=== PATIENT | female | born 1940 | race Caucasian/White ===

== ENCOUNTER 2023-06-17 19:16 | Emergency (ER) | payer OTHER, SELFPAY ==
[2023-06-17 19:20] VITALS: BP 182/77
[2023-06-17 19:59] VITALS: BMI 44.3
[2023-06-17 20:00] VITALS: BP 156/65
[2023-06-17 20:14] LABS: % Basophils 0.9 % (0-2); % Immature Granulocytes 0.2 % (0-0.5); % Lymphocytes 25.9 % (20.5-51.1); % Monocytes 11.8 % (1.7-9.3); % Neutrophils 59.2 % (42.2-75.2); Absolute Eosinophils 0.1 10^3/uL (0-0.7); Absolute Lymphocytes 1.2 10^3/uL (1.2-3.4); Absolute Monocytes 0.5 10^3/uL (0.1-0.6); Absolute Neutrophils 2.7 10^3/uL (1.4-6.5); Hematocrit 34.7 % (37.0-47.0); Hemoglobin 12.2 g/dL (12.0-16.0); Mean Corp Hgb Conc. 35.2 g/dL (33.0-37.0); Mean Corpuscular Volume 93.8 fL (81.0-99.0); Mean Platelet Volume 9.5 fL (7.4-10.4); Nucleated Red Blood Cells % 0 %; Platelet Count 199 10^3/uL (130-400); Red Cell Dist. Width 13.2 % (11.5-14.5); White Blood Cell Count 4.6 10^3/uL (4.8-10.8)
[2023-06-17 20:26] LABS: Blood Urea Nitrogen 27 mg/dl (7-17); Calcium 9.2 mg/dl (8.4-10.2); Carbon Dioxide 27 mmol/L (22-30); Chloride 97 mmol/L (98-107); Estimated Creatinine Clearance 59 ml/min; Glucose 153 mg/dl (70-99); Potassium 4.7 mmol/L (3.5-5.1); Sodium 129 mmol/L (135-145); eGFR > 60.00
[2023-06-17] MEDS: NSS 500 IV (21:40)
[2023-06-17 21:47] VITALS: BP 148/71
[2023-06-17 22:00] VITALS: BP 118/99
[2023-06-17 23:00] VITALS: BP 146/70
--- NOTE | 2023-06-17 23:17 | ED.GENMED ---
History of Present Illness
General
Chief Complaint: Weakness
Source: patient
Exam Limitations: none
Time Seen by Provider: 06/17/23 20:20
Nursing documentation reviewed up to this point in time: agreed with
Travel History
Have you had any contact with someone who has COVID-19?: No
Do you have any symptoms of coronavirus? Fever > 100 degrees, chills, cough, shortness of breath, sore throat, loss of taste or smell, muscle aches, or headache?: No
History of Present Illness
History of Present Illness:
Patient presents to ED secondary to generalized weakness and fatigue over the past 2 weeks. In addition, when she checked her blood pressure at home, it was high. Denies fever or chills. Denies chest pain or shortness of breath. Denies coughing.
Denies nausea, vomiting, or diarrhea. Denies dizziness. Denies loss of sensation. Denies difficulty with speech. Denies blurred vision. Denies difficulty with ambulation. Of note, patient states that she has been only eating 2 meals and has
cut out eating any 'treats', and attempt to lose weight. Patient states that she feels as though she drinks enough water.
Past History
Past History
ED Past Medical History: Arrthythmia (Atrial fibrillation), HTN, Hypercholesterolemia, NIDDM, Hypothyroidism and Other (History of back pain, neck pain, diarrhea, diverticulitis, irritable bowel surgery, osteoarthritis)
ED Past Surgical History: Cholecystectomy, Tonsilectomy and Other (Surgery for a colonic abscess he, carpal tunnel surgery bilaterally cystocele repair, rectocele repair, umbilical hernia surgery, D&C, Achilles tendon and spur surgery)
Social History
Personal:
Living: with family
Employment: Retired
Review of Systems
Review of Systems
Allergies reviewed?: Yes
All Other Systems: ROS reviewed and negative except as documented in HPI and ROS
Constitutional: Reports fatigue
EENT: Reports no symptoms
Respiratory: Reports no symptoms; Denies trouble breathing
Cardiac: Reports no symptoms; Denies chest pain
ABD/GI: Reports no symptoms; Denies nausea, vomiting or diarrhea
: Denies no symptoms
Musculoskeletal: Reports no symptoms
Skin: Reports no symptoms
Neurological: Reports weakness
Phy Exam
Physical Exam
Physical Exam:
Physical Exam
General: no apparent distress, not acutely ill. afebrile
Head: nc/at. eomi
Neck: supple. no meningeal signs.
Heart: s1/s2 regular rate and rhythm, no murmur. equal radial pulses.
Lungs: no acute respiratory distress. clear bilaterally
Abdomen: normal bowel sounds. not tender.
Neuro: alert and oriented. no focal neurological deficits. normal speech.
Skin: no rash
Psychiatric: well kept. interactive and cooperative
Extremities: LE edema, nonpitting. no calf tenderness.
Course
Orders/Labs/Results
Orders:
Orders
06/17/23 19:23
Electrocardiogram (*1) Urgent
Reason for Study: Fatigue / Weakness
EKG- Treatment ONCE
06/17/23 20:07
Basic Metabolic Panel Urgent
Complete Blood Count/With Diff Urgent
TSH Reflex To Free T4 Urgent
Comment: ADD ON
06/17/23 21:10
Add On- LAB Urgent
Tests Added?: TSH to reflex free T4
0.9% Sodium Chloride 500 ml [Nss] 500 ml IV BOLUS
Abnormal Lab Results
06/17/23
20:07
WBC 4.6 L 10^3/uL
(4.8-10.8)
RBC 3.70 L 10^6/uL
(4.20-5.40)
Hct 34.7 L %
(37.0-47.0)
MCH 33.0 H pg
(27.0-31.0)
Monocytes % 11.8 H %
(1.7-9.3)
Sodium 129 L mmol/L
(135-145)
Chloride 97 L mmol/L
(98-107)
BUN 27 H mg/dl
(7-17)
Glucose 153 H mg/dl
(70-99)
06/17/23 20:07
06/17/23 20:07
Vital Signs
Initial and Last Documented VS:
Initial Vital Signs
Temp Pulse Resp BP Pulse Ox
97.8 F 64 18 182/77 99
06/17/23 19:20 06/17/23 19:20 06/17/23 19:20 06/17/23 19:20 06/17/23 19:20
Last Documented Vital Signs
Temp Pulse Resp BP Pulse Ox
97.8 F 61 20 146/70 93
06/17/23 19:20 06/17/23 23:45 06/17/23 23:45 06/17/23 23:00 06/17/23 23:45
MDM/Problems Addressed
MDM/Problems Addressed:
Hyponatremia as well as increased BUN to creatinine ratio noted, suggestive of possible mild malnutrition along with dehydration. Patient given IV fluid bolus in ED. Patient will be discharged home in stable condition, to the care of her spouse,
with recommendation to increase caloric intake also along with increased fluid intake. In addition, recommended PCP follow-up as an outpatient, including repeat blood work in 1 to 2 weeks.
*Critical Care Note
Total Time (30-74mins, 75-104mins- exclusive of procedures): Not Applicable
ED Attending Note
-
Portions of this chart may have been created with voice recognition software.� Occasional wrong word or��sound alike� substitutions may have occurred due to the inherent limitations of voice recognition software.
Discharge Plan
Departure
Patient Disposition: Home (Routine Discharge)
Date of Disposition: 06/17/23
Time of Disposition: 23:21
Patient with high blood pressure during this ER visit?: Yes
Discharge Problem:
Weakness
Instructions: Generalized Weakness (DC)
Prescriptions:
No Action
famotidine 20 MG tablet
20 mg PO QPM
lorazepam 0.5 MG tablet
0.5 - 1 mg PO HS
lisinopril 10 MG tablet
40 mg PO DAILY
rosuvastatin 5 MG tablet
5 mg PO Q48H
omeprazole 20 MG tablet,delayed release (DR/EC)
20 mg PO DAILY
cholecalciferol (vitamin D3) [Vitamin D3] 2,000 UNIT capsule
2,000 unit PO DAILY
methocarbamol 500 MG tablet
500 mg PO BIDPRN PRN (Reason: as directed)
acetaminophen [Tylenol Extra Strength] 500 MG tablet
1,000 mg PO HS PRN (Reason: PAIN)
acetaminophen [Tylenol Extra Strength] 500 MG tablet
1,000 mg PO DAILY PRN (Reason: PAIN)
levothyroxine 150 MCG tablet
125 mcg PO DAILY
calcium carbonate [Antacid (calcium carbonate)] 1 TABLET tablet,chewable
2 - 4 tab PO HS
docosahexaenoic acid-epa 1 CAP capsule
2 cap PO BID
coenzyme Q10 [Co Q-10] 200 MG capsule
200 mg PO DAILY
Xarelto 20 MG tablet
20 mg PO QPM
Patient Comments:
TAKES AT DINNER
L.acidoph, paracasei,B. lactis 1 EACH capsule
1 ea PO DAILY
magnesium oxide 400 MG tablet
400 mg PO BID
ondansetron HCl 4 MG tablet
4 mg PO PRN PRN (Reason: NAUSEA/VOMITTING)
tramadol 50 MG tablet
50 mg PO PRN PRN (Reason: PAIN)
Fiber
3 tab PO BID
Saline Nasal 50 SPRAYS/45 ML aerosol,spray
2 sprays intranasal QID 0RF
rabeprazole 20 mg Tablet,Delayed Release (Dr/Ec)
20 mg PO DAILY
glipizide 10 mg Tablet
10 mg PO BID
venlafaxine [Effexor] 37.5 mg Tablet
37.5 mg PO DAILY
ferrous sulfate [Iron (ferrous sulfate)] 325 mg (65 mg iron) Tablet
325 mg PO BID
pioglitazone 30 mg Tablet
30 mg PO DAILY
Willis 3 Fish Oil Capsule
1 cap PO DAILY
Referrals:
Pedro Barahona MD [Family Provider] -
Activity Restrictions/Additional Instructions:
As discussed, please follow-up with your primary care physician for reevaluation, including repeat blood work in 1 to 2 weeks. In the meantime, recommend keeping log of daily blood pressure, to be discussed with your primary care physician
Interventions
Interventions:
*Risk Screen - Suicide Last Done: 06/17/23 19:20
*General Assessment Last Done: 06/17/23 19:20
*Neglect/Abuse Screening Last Done: 06/17/23 19:20
ED- Fall Risk Assessment Last Done: 06/18/23 00:25
*ED COVID-19 Vaccine History Last Done: 06/17/23 19:59
*Nursing Disposition Last Done: 06/18/23 00:25
ED- Cardiac Assessment Last Done: 06/17/23 20:15
ED- Neurological Assessment Last Done: 06/17/23 20:15
ED- Pulmonary Assessment Last Done: 06/17/23 20:15
Discharge Date and Time
Discharge Date/Time: 06/18/23 00:25
[2023-06-17 23:29] LABS: TSH Reflex To Free T4 1.88 uIU/ml (0.47-4.68)
== END 2023-06-18 00:25 | disposition home or self-care (01) ==
LOC: EMR 19:16
PROVIDERS: EMERGENCY PHYSICIAN Emergency Medicine; FAMILY PHYSICIAN Internal Medicine
DX: R53.1 Weakness (principal); R53.83 Other fatigue; I48.91 Unspecified atrial fibrillation; I10 Essential (primary) hypertension; E78.00 Pure hypercholesterolemia, unspecified; E11.9 Type 2 diabetes mellitus without complications; E03.9 Hypothyroidism, unspecified; E87.1 Hypo-osmolality and hyponatremia; K58.9 Irritable bowel syndrome, unspecified; M19.90 Unspecified osteoarthritis, unspecified site; Z90.49 Acquired absence of other specified parts of digestive tract
CPT/HCPCS: 99283; 96360; 80048; 84443; 85025; 93005

== ENCOUNTER 2023-06-24 22:48 | Emergency (ER) | payer OTHER, SELFPAY ==
[2023-06-24 22:50] VITALS: BP 138/77
[2023-06-24 23:21] VITALS: BP 163/75
[2023-06-24 23:36] LABS: % Basophils 0.8 % (0-2); % Eosinophils 2.9 % (0-6); % Immature Granulocytes 0.2 % (0-0.5); % Lymphocytes 29.8 % (20.5-51.1); % Monocytes 8.4 % (1.7-9.3); % Neutrophils 57.9 % (42.2-75.2); Absolute Eosinophils 0.2 10^3/uL (0-0.7); Absolute Lymphocytes 1.5 10^3/uL (1.2-3.4); Absolute Monocytes 0.4 10^3/uL (0.1-0.6); Hematocrit 34.9 % (37.0-47.0); Hemoglobin 12.1 g/dL (12.0-16.0); Mean Corp Hgb Conc. 34.7 g/dL (33.0-37.0); Mean Corpuscular Hgb 32.5 pg (27.0-31.0); Mean Corpuscular Volume 93.8 fL (81.0-99.0); Mean Platelet Volume 9.4 fL (7.4-10.4); Nucleated Red Blood Cells % 0 %; Platelet Count 192 10^3/uL (130-400); Red Blood Cell Count 3.72 10^6/uL (4.20-5.40); Red Cell Dist. Width 13.6 % (11.5-14.5); White Blood Cell Count 5.1 10^3/uL (4.8-10.8)
[2023-06-24 23:56] LABS: ALT (SGPT) 18 U/L (0-35); AST (SGOT) 30 U/L (14-36); Albumin 4.2 g/dl (3.5-5.0); Alkaline Phosphatase 57 U/L (38-126); Blood Urea Nitrogen 25 mg/dl (7-17); Calcium 9.5 mg/dl (8.4-10.2); Carbon Dioxide 25 mmol/L (22-30); Chloride 102 mmol/L (98-107); Glucose 133 mg/dl (70-99); Lipase 142 U/L (23-300); Potassium 4.1 mmol/L (3.5-5.1); Sodium 134 mmol/L (135-145); Total Bilirubin 0.4 mg/dl (0.2-1.3); Total Protein 7.1 g/dl (6.3-8.2); eGFR > 60.00
[2023-06-25] VITALS: BP 159/54
[2023-06-25 00:13] LABS: Troponin I < 0.012 ng/ml
[2023-06-25 01:00] VITALS: BP 167/73
[2023-06-25 02:00] VITALS: BP 138/56
--- NOTE | 2023-06-25 02:32 | ED.GENMED ---
History of Present Illness
General
Chief Complaint: Blood Pressure Problem
Source: patient and spouse
Exam Limitations: none
Time Seen by Provider: 06/24/23 23:08
Travel History
Have you had any contact with someone who has COVID-19?: No
Do you have any symptoms of coronavirus? Fever > 100 degrees, chills, cough, shortness of breath, sore throat, loss of taste or smell, muscle aches, or headache?: No
History of Present Illness
History of Present Illness:
82-year-old female presents just not feeling well. She checked her blood pressure and noticed it to be elevated. Patient denies chest pain or shortness of breath. No palpitations. Does report that she had little bit discomfort in her epigastric
area and toward her back. No vomiting.
Past History
Past History
ED Past Medical History: Arrthythmia (Atrial fibrillation), HTN, Hypercholesterolemia, NIDDM, Hypothyroidism and Other (History of back pain, neck pain, diarrhea, diverticulitis, irritable bowel surgery, osteoarthritis)
ED Past Surgical History: Cholecystectomy, Tonsilectomy and Other (Surgery for a colonic abscess he, carpal tunnel surgery bilaterally cystocele repair, rectocele repair, umbilical hernia surgery, D&C, Achilles tendon and spur surgery)
Social History
Personal:
Living: with family
Employment: Retired
Phy Exam
Physical Exam
Physical Exam:
CONSTITUTIONAL Patient alert and oriented to person, place and time. Well-appearing. Vital signs reviewed.
HEAD atraumatic, normocephalic.
EYES eyelids normal to inspection, Pupils equally round and reactive to light, Extraocular muscles intact, Conjunctiva normal, Sclera normal.
NECK normal range of motion, Trachea midline, no jugular venous distention.
RESPIRATORY CHEST No respiratory distress noted, Chest expansion equal, Bilateral breath sounds clear.
CARDIOVASCULAR regular rate and rhythm, Heart sounds normal.
ABDOMEN abdomen nontender, Bowel sounds normal. No distention.
BACK normal inspection, no obvious deformities
UPPER EXTREMITY range of motion normal, Motor strength normal, no cyanosis, no edema.
LOWER EXTREMITY range of motion normal, Motor strength normal, no cyanosis, no edema.
NEURO Speech normal, No focal motor deficits, [place] coma scale 15, Memory normal, Cranial Nerves intact to screening exam.
SKIN skin warm, dry, and normal in color.
PSYCHIATRIC patient oriented to person place and time, Normal affect.
Course
Orders/Labs/Results
Orders:
Orders
06/24/23 23:28
Electrocardiogram (*1) Urgent
Reason for Study: Chest Pain
EKG- Treatment ONCE
06/24/23 23:29
Complete Blood Count/With Diff Urgent
Comprehensive Metabolic Panel Urgent
Lipase Urgent
Troponin I Urgent
06/25/23 00:03
CT Chest Pe Study Urgent
Comment:
Reason For Exam: cp, back pain, sob
Abnormal Lab Results
06/24/23
23:29
RBC 3.72 L 10^6/uL
(4.20-5.40)
Hct 34.9 L %
(37.0-47.0)
MCH 32.5 H pg
(27.0-31.0)
Sodium 134 L mmol/L
(135-145)
BUN 25 H mg/dl
(7-17)
Glucose 133 H mg/dl
(70-99)
06/24/23 23:29
06/24/23 23:29
Vital Signs
Initial and Last Documented VS:
Initial Vital Signs
Temp Pulse Resp BP Pulse Ox
97.8 F 70 24 138/77 96
06/24/23 22:50 06/24/23 22:50 06/24/23 22:50 06/24/23 22:50 06/24/23 22:50
Last Documented Vital Signs
Temp Pulse Resp BP Pulse Ox
97.8 F 62 19 138/56 90
06/24/23 22:50 06/25/23 02:15 06/25/23 02:15 06/25/23 02:00 06/25/23 02:15
MDM/Problems Addressed
MDM/Problems Addressed:
Hypertension
*Radiology
Radiology exam reviewed: radiology read reviewed
*Pulse Oximetry
Patient hypoxic: no
*EKG
Interpreted by ED Provider?: Yes
Interpretation: abnormal
Rate: bradycardiac
Rhythm: sinus
Ischemia: no ischemia
*Critical Care Note
Total Time (30-74mins, 75-104mins- exclusive of procedures): Not Applicable
Data Reviewed
Source: patient and spouse
Prescriptions/Medications Considered But Not Given:
Consider blood pressure management but blood pressure controlled over time without intervention
Patient Management
Escalation/DeEscalation of care consider admission/obs:
Appears well. CT negative. Labs unremarkable. Okay for discharge. Blood pressure much improved after observation
ED Attending Note
-
Portions of this chart may have been created with voice recognition software.� Occasional wrong word or��sound alike� substitutions may have occurred due to the inherent limitations of voice recognition software.
Discharge Plan
Departure
Patient Disposition: Home (Routine Discharge)
Date of Disposition: 06/25/23
Time of Disposition: 02:34
Patient with high blood pressure during this ER visit?: Yes
Discharge Problem:
Weakness
Instructions: High Blood Pressure (DC), BLOOD PRESSURE
Prescriptions:
No Action
famotidine 20 MG tablet
20 mg PO QPM
lorazepam 0.5 MG tablet
0.5 - 1 mg PO HS
lisinopril 10 MG tablet
40 mg PO DAILY
rosuvastatin 5 MG tablet
5 mg PO Q48H
omeprazole 20 MG tablet,delayed release (DR/EC)
20 mg PO DAILY
cholecalciferol (vitamin D3) [Vitamin D3] 2,000 UNIT capsule
2,000 unit PO DAILY
methocarbamol 500 MG tablet
500 mg PO BIDPRN PRN (Reason: as directed)
acetaminophen [Tylenol Extra Strength] 500 MG tablet
1,000 mg PO HS PRN (Reason: PAIN)
acetaminophen [Tylenol Extra Strength] 500 MG tablet
1,000 mg PO DAILY PRN (Reason: PAIN)
levothyroxine 150 MCG tablet
125 mcg PO DAILY
calcium carbonate [Antacid (calcium carbonate)] 1 TABLET tablet,chewable
2 - 4 tab PO HS
docosahexaenoic acid-epa 1 CAP capsule
2 cap PO BID
coenzyme Q10 [Co Q-10] 200 MG capsule
200 mg PO DAILY
Xarelto 20 MG tablet
20 mg PO QPM
Patient Comments:
TAKES AT DINNER
L.acidophrenettai,B. lactis 1 EACH capsule
1 ea PO DAILY
magnesium oxide 400 MG tablet
400 mg PO BID
ondansetron HCl 4 MG tablet
4 mg PO PRN PRN (Reason: NAUSEA/VOMITTING)
tramadol 50 MG tablet
50 mg PO PRN PRN (Reason: PAIN)
Fiber
3 tab PO BID
Saline Nasal 50 SPRAYS/45 ML aerosol,spray
2 sprays intranasal QID 0RF
rabeprazole 20 mg Tablet,Delayed Release (Dr/Ec)
20 mg PO DAILY
glipizide 10 mg Tablet
10 mg PO BID
venlafaxine [Effexor] 37.5 mg Tablet
37.5 mg PO DAILY
ferrous sulfate [Iron (ferrous sulfate)] 325 mg (65 mg iron) Tablet
325 mg PO BID
pioglitazone 30 mg Tablet
30 mg PO DAILY
[place] 3 Fish Oil Capsule
1 cap PO DAILY
Referrals:
Pedro Barahona MD [Family Provider] -
Activity Restrictions/Additional Instructions:
Please see your doctor next 3 to 5 days for follow-up and reevaluation. Return immediately for worsening symptoms, weakness of any kind, vomiting, chest pain or any other concerns.
Interventions
Interventions:
*Risk Screen - Suicide Last Done: 06/24/23 22:50
*General Assessment Last Done: 06/25/23 01:18
*Neglect/Abuse Screening Last Done: 06/24/23 22:50
ED- Fall Risk Assessment Last Done: 06/25/23 01:18
*ED COVID-19 Vaccine History Last Done: 06/25/23 01:18
ED- Cardiac Assessment Last Done: 06/24/23 23:39
ED- Neurological Assessment Last Done: 06/24/23 23:39
ED- Pulmonary Assessment Last Done: 06/24/23 23:39
== END 2023-06-25 02:50 | disposition home or self-care (01) ==
LOC: EMR 22:48
PROVIDERS: EMERGENCY PHYSICIAN Emergency Medicine; FAMILY PHYSICIAN Internal Medicine
DX: R53.1 Weakness (principal); I10 Essential (primary) hypertension
CPT/HCPCS: 99285; 71275; 80053; 83690; 84484; 85025; 93005; Q9967

== ENCOUNTER → 2024-01-08 12:44 | Outpatient (REF) | payer OTHER, SELFPAY | LOC: WOUND 12:44 | PROVIDERS: ATTENDING PHYSICIAN Surgery; FAMILY PHYSICIAN Internal Medicine | DX: S31.109A Unspecified open wound of abdominal wall, unspecified quadrant without penetration into peritoneal cavity, initial encounter (principal); I48.0 Paroxysmal atrial fibrillation; J98.4 Other disorders of lung; J32.9 Chronic sinusitis, unspecified; E66.3 Overweight; Z90.49 Acquired absence of other specified parts of digestive tract; X58.XXXA Exposure to other specified factors, initial encounter | CPT/HCPCS: 11042; 99204 ==

== ENCOUNTER → 2024-01-15 09:21 | Outpatient (REF) | payer OTHER, SELFPAY | LOC: WOUND 09:21 | PROVIDERS: ATTENDING PHYSICIAN Surgery; FAMILY PHYSICIAN Internal Medicine | DX: S31.109A Unspecified open wound of abdominal wall, unspecified quadrant without penetration into peritoneal cavity, initial encounter (principal); L90.5 Scar conditions and fibrosis of skin; Z90.49 Acquired absence of other specified parts of digestive tract; I48.0 Paroxysmal atrial fibrillation; J98.4 Other disorders of lung; J32.9 Chronic sinusitis, unspecified; E66.3 Overweight; X58.XXXA Exposure to other specified factors, initial encounter | CPT/HCPCS: 88305; 11104; 11105; 87070; 87147; 87176; 87186; 87205; 99213 ==

== ENCOUNTER → 2024-01-16 08:44 | Outpatient (REF) | payer OTHER, SELFPAY | LOC: RAD 08:44 | PROVIDERS: ATTENDING PHYSICIAN Surgery; FAMILY PHYSICIAN Internal Medicine | DX: S31.109A Unspecified open wound of abdominal wall, unspecified quadrant without penetration into peritoneal cavity, initial encounter (principal); L90.5 Scar conditions and fibrosis of skin | CPT/HCPCS: 76705 ==

== ENCOUNTER → 2024-01-22 13:26 | Outpatient (REF) | payer OTHER, SELFPAY | LOC: WOUND 13:26 | PROVIDERS: ATTENDING PHYSICIAN Surgery; FAMILY PHYSICIAN Internal Medicine | DX: S31.109A Unspecified open wound of abdominal wall, unspecified quadrant without penetration into peritoneal cavity, initial encounter (principal); L90.5 Scar conditions and fibrosis of skin; I48.0 Paroxysmal atrial fibrillation; J98.4 Other disorders of lung; J32.9 Chronic sinusitis, unspecified; E66.3 Overweight; X58.XXXA Exposure to other specified factors, initial encounter | CPT/HCPCS: 11042; 99213 ==

== ENCOUNTER → 2024-01-29 13:26 | Outpatient (REF) | payer OTHER, SELFPAY | LOC: WOUND 13:26 | PROVIDERS: ATTENDING PHYSICIAN Surgery | DX: S31.109A Unspecified open wound of abdominal wall, unspecified quadrant without penetration into peritoneal cavity, initial encounter (principal); L90.5 Scar conditions and fibrosis of skin; I48.0 Paroxysmal atrial fibrillation; J98.4 Other disorders of lung; J32.9 Chronic sinusitis, unspecified; E66.3 Overweight; Z90.49 Acquired absence of other specified parts of digestive tract; X58.XXXA Exposure to other specified factors, initial encounter | CPT/HCPCS: 11042 ==

== ENCOUNTER → 2024-02-08 13:55 | Outpatient (REF) | payer OTHER, SELFPAY | LOC: HWRAD 13:55 | PROVIDERS: ATTENDING PHYSICIAN Internal Medicine | DX: M81.0 Age-related osteoporosis without current pathological fracture (principal) | CPT/HCPCS: 77080 ==

== ENCOUNTER 2025-02-15 23:37 | Inpatient (IN) | payer OTHER, SELFPAY ==
[2025-02-15 18:31] VITALS: BP 170/77
[2025-02-15 18:33] VITALS: BP 170/77
[2025-02-15 18:37] VITALS: BMI 36.3
[2025-02-15 19:00] VITALS: BP 139/123
--- NOTE | 2025-02-15 19:12 | ED.MUSCINJ ---
HPI-Injury
<Tierra Scott NP - Last Filed: 02/15/25 22:32>
General
Chief Complaint: Fall
Source: patient
Exam Limitations: none
Time Seen by Provider: 02/15/25 18:37
Nursing documentation reviewed up to this point in time: agreed with
History of Present Illness-Injury
Is this injury a work related problem?: No
Is pt an associate of [facility]?: No
Initial Injury comments:
Patient to the emergency department after a fall at home. States she was trying to transfer from a chair onto her wheelchair but forgot to lock the brakes on the wheelchair. Wheelchair slid out and she fell onto the floor. She denies hitting her
head. There was no loss of consciousness. She complains of pain to her right hip. She is unable to move right lower extremity without severe pain, unable to bear weight. Injury occurred just prior to arrival. She is brought to the emergency
department by EMS for evaluation. Daughter is at bedside with her. On Xarelto
Past History
<Tierra Scott NP - Last Filed: 02/15/25 22:32>
Past History
ED Past Medical History: Arrthythmia (Atrial fibrillation), HTN, Hypercholesterolemia, NIDDM, Hypothyroidism and Other (History of back pain, neck pain, diarrhea, diverticulitis, irritable bowel surgery, osteoarthritis)
ED Past Surgical History: Cholecystectomy, Tonsilectomy and Other (Surgery for a colonic abscess he, carpal tunnel surgery bilaterally cystocele repair, rectocele repair, umbilical hernia surgery, D&C, Achilles tendon and spur surgery)
Social History
Personal:
Living: with family
Employment: Retired
Review of Systems
<Tierra Scott AD CLERK - Last Filed: 02/15/25 22:32>
Review of Systems
Constitutional: Reports no symptoms
EENT: Reports no symptoms
Respiratory: Reports no symptoms
Cardiac: Reports no symptoms
ABD/GI: Reports no symptoms
: Reports no symptoms
Musculoskeletal: Reports joint pain (Pain to right hip.)
Skin: Reports no symptoms
Neurological: Reports no symptoms
Psychiatric: Reports no symptoms
Musculoskeletal Injury Exam
<Tierra Scott AD CLERK - Last Filed: 02/15/25 22:32>
Musculoskeletal Injury Exam
Right Hip:
Pain with Movement?: Moderate
Tender to palpation?: Moderate
Soft tissue swelling?: Mild
External deformity and angulation?: None
Joint effusion?: None
Contusion?: Moderate
Hematoma-local bleeding into tissue?: None
Strain- Sprain- Tear (Connective tissue injury)?: Moderate
Crepitus with movement?: No
Joint instability?: No
Malalignment/deformity?: No
Range of motion: Limited
Distal skin color and temperature: normal-warm & good color
Capillary Refill: normal
Normal distal neurovascular exam?: Yes
Peripheral Pulses: posterior tibial (right): 3+ and dorsalis pedis (right): 3+
Phy Exam
<Tierra Scott, AD CLERK - Last Filed: 02/15/25 22:32>
General Physical Exam
General Presentation: moderate distress
General age: appears stated age
General Skin: warm and dry
General Habitus: normal
General Mental: alert
Cardiovascular Exam
Cardiovascular Exam: regular rate/rhythm and no edema
Pulmonary Exam
Pulmonary Exam: lungs clear and no respiratory distress
Gastrointestinal Exam
Gastrointestinal Exam: normal bowel sounds, non tender, soft, no pulsatile mass and non distended
Musculoskeletal Exam
Musculoskeletal Exam: neuro vasc intact
Skin Exam
Skin Exam: normal color, warm/dry and no rash
Psychiatric Exam
Psychiatric Exam: normal mood/affect
Injury Course
<Tierra Scott, AD CLERK - Last Filed: 02/15/25 22:32>
Orders/Labs/Results
Orders:
Orders
02/15/25 19:05
Hip, Right 2-3 Views [CR Hip - RT w/wo Pel 2-3 Vw*] Urgent
Comment:
Reason For Exam: fall
Include a pelvis x-ray?: Yes
02/15/25 19:06
HYDROmorphone [Dilaudid] 0.5 mg IV NOW STA
02/15/25 19:08
Ondansetron Injectable [Zofran] 4 mg IV NOW STA
02/15/25 19:21
Comprehensive Metabolic Panel Urgent
02/15/25 19:22
Type+Screen Urgent
Complete Blood Count/With Diff Urgent
02/15/25 20:22
CT Pelvis W/o Iv Contrast Urgent
Comment:
Reason For Exam: right hip pain. unable to bear weight.
02/15/25 20:34
HYDROmorphone [Dilaudid] 0.5 mg IV NOW STA
02/15/25 22:30
Electrocardiogram (*1) Urgent
Reason for Study: Fatigue / Weakness
EKG- Treatment ONCE
02/15/25 22:31
ORTHOPEDIC CONSULT Urgent
Consulting Provider: Amrik Frausto
Was physician already notified: Yes
Abnormal Lab Results
02/15/25 02/15/25
19:21 19:22
RBC 3.70 L 10^6/uL
(4.20-5.40)
Hgb 11.3 L g/dL
(12.0-16.0)
Hct 34.2 L %
(37.0-47.0)
RDW 15.0 H %
(11.5-14.5)
MPV 10.5 H fL
(7.4-10.4)
Abs Immat Gran (auto) 0.1 H 10^3/uL
(0-0.05)
Absolute Monos (auto) 0.7 H 10^3/uL
(0.1-0.6)
Immature Gran % 0.8 H %
(0-0.5)
Monocytes % 11.5 H %
(1.7-9.3)
Sodium 132 L mmol/L
(135-145)
BUN 37 H mg/dl
(7-17)
Glucose 139 H mg/dl
(70-99)
02/15/25 19:22
02/15/25 19:21
<Alex Romano, DO - Last Filed: 02/15/25 22:46>
Orders/Labs/Results
Orders:
Orders
02/15/25 19:05
Hip, Right 2-3 Views [CR Hip - RT w/wo Pel 2-3 Vw*] Urgent
Comment:
Reason For Exam: fall
Include a pelvis x-ray?: Yes
02/15/25 19:06
HYDROmorphone [Dilaudid] 0.5 mg IV NOW STA
02/15/25 19:08
Ondansetron Injectable [Zofran] 4 mg IV NOW STA
02/15/25 19:21
Comprehensive Metabolic Panel Urgent
02/15/25 19:22
Type+Screen Urgent
Complete Blood Count/With Diff Urgent
02/15/25 20:22
CT Pelvis W/o Iv Contrast Urgent
Comment:
Reason For Exam: right hip pain. unable to bear weight.
02/15/25 20:34
HYDROmorphone [Dilaudid] 0.5 mg IV NOW STA
02/15/25 22:30
Electrocardiogram (*1) Urgent
Reason for Study: Fatigue / Weakness
EKG- Treatment ONCE
02/15/25 22:31
ORTHOPEDIC CONSULT Urgent
Consulting Provider: Amrik Frausto
Was physician already notified: Yes
Abnormal Lab Results
02/15/25 02/15/25
19:21 19:22
RBC 3.70 L 10^6/uL
(4.20-5.40)
Hgb 11.3 L g/dL
(12.0-16.0)
Hct 34.2 L %
(37.0-47.0)
RDW 15.0 H %
(11.5-14.5)
MPV 10.5 H fL
(7.4-10.4)
Abs Immat Gran (auto) 0.1 H 10^3/uL
(0-0.05)
Absolute Monos (auto) 0.7 H 10^3/uL
(0.1-0.6)
Immature Gran % 0.8 H %
(0-0.5)
Monocytes % 11.5 H %
(1.7-9.3)
Sodium 132 L mmol/L
(135-145)
BUN 37 H mg/dl
(7-17)
Glucose 139 H mg/dl
(70-99)
02/15/25 19:22
02/15/25 19:21
<Tierra Scott NP - Last Filed: 02/15/25 22:32>
*Radiology
Radiology exam reviewed: radiology read reviewed
*Pulse Oximetry
SaO2: 98
Oxygen Mode of Delivery: Room air
Patient hypoxic: no
*Critical Care Note
Total Time (30-74mins, 75-104mins- exclusive of procedures): Not Applicable
<Tierra Scott NP - Last Filed: 02/15/25 22:32>
Update Note
Update Note:
Patient to the emergency department after a fall at home. She is nonambulatory, however she is able to stand and she transfers self independently into her wheelchair. Tonight she forgot to lock her wheelchair and she fell onto her right side. She
denies hitting her head. She was unable to get up. She was unable to move right lower extremity due to pain in her hip. Hip x-ray completed, no evidence of fracture noted. She was sent for noncontrast CT which confirms a right lateral superior
pubic ramus fracture, nondisplaced. Pain medications were provided however she is still is unable to stand and transfer due to pain. Will admit to the hospitalist service. Dr. Frausto notified of consult via [place] text.
ED Attending Note
<Tierra Scott AD CLERK - Last Filed: 02/15/25 22:32>
-
Portions of this chart may have been created with voice recognition software.� Occasional wrong word or��sound alike� substitutions may have occurred due to the inherent limitations of voice recognition software.
<Alex Romano, DO - Last Filed: 02/15/25 22:46>
ED Attending Note
Patient seen and examined by attending physician: Yes
ED Attending Note:
I have reviewed and agree with history treatment plan by Tierra cSott. My exam revealed 84-year-old female with right pelvic tenderness decreased range of motion right hip. No other traumatic findings. Admit to hospitalist due to right
superior pubic ramus fracture patient's inability to ambulate. Orthopedics notified.
Discharge Plan
Departure
Patient Disposition: Admit
Date of Disposition: 02/15/25
Time of Disposition: 22:27
Presentation/result/management discussed w/ accepting MD/DO: Hospitalist
Condition: Fair
Covid-19: Not Applicable
Discharge Problem:
Closed pelvic fracture
Prescriptions:
No Action
famotidine 20 MG tablet
20 mg PO QPM
lorazepam 0.5 MG tablet
0.5 - 1 mg PO HS
lisinopril 10 MG tablet
40 mg PO DAILY
rosuvastatin 5 MG tablet
5 mg PO Q48H
omeprazole 20 MG tablet,delayed release (DR/EC)
20 mg PO DAILY
cholecalciferol (vitamin D3) [Vitamin D3] 2,000 UNIT capsule
2,000 unit PO DAILY
methocarbamol 500 MG tablet
500 mg PO BIDPRN PRN (Reason: as directed)
acetaminophen [Tylenol Extra Strength] 500 MG tablet
1,000 mg PO HS PRN (Reason: PAIN)
acetaminophen [Tylenol Extra Strength] 500 MG tablet
1,000 mg PO DAILY PRN (Reason: PAIN)
levothyroxine 150 MCG tablet
125 mcg PO DAILY
calcium carbonate [Antacid (calcium carbonate)] 1 TABLET tablet,chewable
2 - 4 tab PO HS
docosahexaenoic acid-epa 1 CAP capsule
2 cap PO BID
coenzyme Q10 [Co Q-10] 200 MG capsule
200 mg PO DAILY
Xarelto 20 MG tablet
20 mg PO QPM
Patient Comments:
TAKES AT DINNER
L.acidoph,paracasei,B.animalis 1 EACH capsule
1 ea PO DAILY
magnesium oxide 400 MG tablet
400 mg PO BID
ondansetron HCl 4 MG tablet
4 mg PO PRN PRN (Reason: NAUSEA/VOMITTING)
tramadol 50 MG tablet
50 mg PO PRN PRN (Reason: PAIN)
Fiber
3 tab PO BID
Saline Nasal 50 SPRAYS/45 ML aerosol,spray
2 sprays intranasal QID 0RF
rabeprazole 20 mg Tablet,Delayed Release (Dr/Ec)
20 mg PO DAILY
glipizide 10 mg Tablet
10 mg PO BID
venlafaxine [Effexor] 37.5 mg Tablet
37.5 mg PO DAILY
ferrous sulfate [Iron (ferrous sulfate)] 325 mg (65 mg iron) Tablet
325 mg PO BID
pioglitazone 30 mg Tablet
30 mg PO DAILY
[place] 3 Fish Oil Capsule
1 cap PO DAILY
Referrals:
Pedro Barahona MD [Family Provider, Internal Medicine]
Interventions
Interventions:
*Risk Screen - Suicide Last Done: 02/15/25 18:33
*General Assessment Last Done: 02/15/25 18:33
*Neglect/Abuse Screening Last Done: 02/15/25 18:33
*ED- Fall Risk Assessment Last Done: 02/15/25 18:33
*ED COVID-19 Vaccine History Last Done: 02/15/25 18:33
*ED Influenza Vaccine History Last Done: 02/15/25 18:33
ED-Musculoskeletal Assessment Last Done: 02/15/25 18:37
ED- Neurological Assessment Last Done: 02/15/25 18:37
ED-Skin Assessment Last Done: 02/15/25 18:40
Discharge Date and Time
Print Language: ALGERIAN
[2025-02-15] MEDS: ZOFRAN 4 MG IV (19:13)
[2025-02-15] MEDS: DILAUDID 0.5 MG IV ×2 (19:13→20:44)
[2025-02-15 19:34] LABS: Hematocrit 34.2 % (37.0-47.0); Hemoglobin 11.3 g/dL (12.0-16.0); Mean Corp Hgb Conc. 33.0 g/dL (33.0-37.0); Mean Corpuscular Volume 92.4 fL (81.0-99.0); Nucleated Red Blood Cells % 0 %; Platelet Count 219 10^3/uL (130-400); Red Cell Dist. Width 15.0 % (11.5-14.5)
[2025-02-15 19:42] LABS: ALT (SGPT) 16 U/L (0-35); AST (SGOT) 25 U/L (14-36); Albumin 4.3 g/dl (3.5-5.0); Alkaline Phosphatase 49 U/L (38-126); Blood Urea Nitrogen 37 mg/dl (7-17); Calcium 9.6 mg/dl (8.4-10.2); Carbon Dioxide 29 mmol/L (22-30); Chloride 98 mmol/L (98-107); Estimated Creatinine Clearance 51 ml/min; Glucose 139 mg/dl (70-99); Potassium 5.0 mmol/L (3.5-5.1); Sodium 132 mmol/L (135-145); Total Protein 7.3 g/dl (6.3-8.2); eGFR > 60.00
[2025-02-15 21:06] VITALS: BP 141/59
[2025-02-15 22:00] VITALS: BP 115/51
--- NOTE | 2025-02-15 22:53 | HPS.HSE ---
Addendum entered and electronically signed by Messi Frank DO 02/15/25 23:44:
Patient seen and examined independently. Agree with findings and plan as set forth by ROSARIO Oneil.
Patient is an 84y F - chronically wheelchair-bound - who presents to ED complaining of R hip pain s/p fall at home. Patient states that she was transferring between chairs and neglected to set her break. She slipped, falling forward. She did
not strike her head. She denies any prodrome of lightheadedness, dizziness, chest pain, dyspnea, etc. Patient notes that she has been feeling well recently with no symptoms of fevers / chills, cough, dyspnea, N/V/D, etc. She does not have history
of frequent falling. Patient notes that she has been wheelchair dependent for about 5 years. She still manages to do housework and help care for her who also has health issues.
Ass:
Pelvic Fracture
Fall at Home
Chronic Ambulatory Dysfunction
Hypertension
Chronic Atrial Fibrillation
DM-II
Hypothyroidism
DDD / Chronic Pain Syndrome
GERD
Obesity
Plan:
Observe overnight for further evaluation and treatment.
Ortho consulted in the ED.
Pain control / supportive care. Weight-bearing as tolerated.
PT / OT evaluations to assist with transfers / mobility.
Hold sulfonylurea acutely. Follow glucose and cover with SSI if needed.
Continue other usual home medications including Xarelto, hydrocodone, etc.
Original Note:
Family Physician
-
Family Physician: Pedro Barahona
Chief Complaint
-
Mechanical fall with right hip pain and inability to stand
History of Present Illness
84-year-old female who was attempting to transfer from her wheelchair to walk up 2 steps while holding onto the wheelchair, but forgot to lock the brakes on the wheelchair. The wheelchair slid out from under her and she fell onto the floor. She
reports she uses a wheelchair for the last 5 years. She is complaining of right groin pain radiating down right leg. She has history of chronic back pain takes Vicodin 2.5 mg twice daily but is prescribed 5 mg twice daily she denies head injury,
LOC but is complaining of right hip pain with inability to bear weight. She was brought to the ER by EMS. She is on Xarelto for A-fib. X-ray showed a right superior pubic rami fracture. She denies headache, dizziness, fever, chills, neck pain,
chest pain, palpitations, cough, shortness breath, abdominal pain, nausea, vomiting, diarrhea, urinary symptoms.
She has past medical history of A-fib, HTN, HLD, DM2, hypothyroidism, chronic back pain, neck pain on opiates, IBS, diverticulitis, osteoarthritis, chronic ambulatory dysfunction has been using wheelchair x 5 years, class II obesity
Medical History
Past Medical History
Past Medical History: Reports Other
Additional Past Medical History:
A-fib
HTN
HLD
DM2
hypothyroidism
back pain on chronic oral opiates
neck pain
IBS
diverticulitis
osteoarthritis
Class II obesity
Depression
GERD
Past Surgical History: Reports Other
Additional Past Surgical History:
Cholecystectomy
Tonsillectomy
Colonic abscess
Bilateral CTR
Cystocele repair
Rectocele repair
Umbilical hernia repair
D&C
Achilles tendon repair
Heel spur surgery
History of sacral fracture repair
Deviated septum repair age 80
Social History
Tobacco: Non-smoker
Alcohol: None
Drug: None
Personal:
Living: With Family ()
Employment: Retired
Family History
Family History: Not pertinent
Allergies / Home Medications
Allergies reflects when Allergies were last updated in [employer].
Home Medications with original date entered in [employer]
Allergy/Medication List:
Allergies
Allergy/AdvReac Type Severity Reaction Status Date / Time
celecoxib Allergy Pharmacy Verified 02/15/25 18:35
to Review
ciprofloxacin (From Cipro) Allergy A-FIB Verified 02/15/25 18:35
erythromycin base Allergy stomach Verified 02/15/25 18:35
upset
oxycodone Allergy Nausea / Verified 02/15/25 18:35
Vomiting
steroids Allergy rash, ZAVALA, Uncoded 02/15/25 18:35
afib
Home Medications
cholecalciferol (vitamin D3) 50 mcg (2,000 unit) capsule (Vitamin D3) 2,000 unit PO DAILY Supplement 09/07/17
famotidine 20 mg tablet 20 mg PO QPM Gastrointestinal issue 09/07/17
lisinopril 10 mg tablet 40 mg PO DAILY Blood pressure 09/07/17
omeprazole 20 mg tablet,delayed release 20 mg PO DAILY Gastrointestinal issue 09/07/17
rosuvastatin 5 mg tablet 5 mg PO HS High cholesterol 09/07/17
Fiber 2 tab PO BID Gastrointestinal issue 04/13/20
calcium carbonate (Antacid (calcium carbonate)) 2 tab PO HS Supplement 04/13/20
coenzyme Q10 200 mg capsule (Co Q-10) 200 mg PO DAILY Supplement 04/13/20
levothyroxine 150 mcg tablet 125 mcg PO DAILY Thyroid 04/13/20
magnesium oxide 400 mg PO BID Supplement 04/13/20
rivaroxaban 20 mg tablet (Xarelto) 20 mg PO QPM Blood clot prevention/tx 04/13/20
glipizide 10 mg tablet 10 mg PO BID 07/22/22
omega-3 fatty acids 1 cap PO BID 07/22/22
venlafaxine 37.5 mg tablet 37.5 mg PO DAILY 07/22/22
Cinnamon 1,000 mg PO BID 02/15/25
Lasix 20 mg PO DAILY PRN wt gain3-5 lbs 02/15/25
Probiotic 1 cap PO DAILY 02/15/25
amiodarone 200 mg tablet 100 mg PO DAILY 02/15/25
hydrocodone 5 mg-acetaminophen 325 mg tablet 2.5 tab PO BID 02/15/25
turmeric 1,500 mg PO BID 02/15/25
Review of Systems
-
History Source: Patient
A 12 point ROS was completed and negative except as noted: Yes
Constitutional: Denies Fever or Chills
EENT: Denies Sore Throat or Runny Nose
Respiratory: Denies Cough or Trouble Breathing
Cardiac: Denies Chest Pain, Diaphoresis, Palpitations or Syncope
Abdomen/GI: Denies Abdominal Pain, Nausea, Vomiting, Diarrhea, Constipated or Bloody Stools
: Denies Dysuria, Frequency, Flank Pain, Incontinence or Difficulty Voiding
Musculoskeletal: Reports Other (Right groin pain radiating down right leg); Denies Joint Pain or Edema
Skin: Denies Itching or Rash
Neurological: Denies Dizzy or Headache
Endocrine: Reports No Symptoms
Hematologic/Lymphatic: Reports No Symptoms
Psych: Reports Calm
Physical Exam
Vital Signs
Vital Signs
Temp Pulse Resp BP Pulse Ox
97.8 F 60 15 115/51 91
02/15/25 18:33 02/15/25 22:15 02/15/25 22:15 02/15/25 22:00 02/15/25 22:15
Physical Exam
General: Pain; No Fever or Chills
HEENT: NormoCephalic, Anicteric, Moist mucous membranes, Atraumatic, PERRLA, [place] Conjunctivae, No Ptosis and Neck Nontender
Respiratory: Clear; No Wheezes, Rales or Rhonchi
Cardiac: S1/S2 and Regular Rhythm; No Murmur, Rub, Gallop or Peripheral Edema
Breast: Deferred by me
GI: Soft, Non Tender, Non Distended, Normal Bowel Sounds and No Hepatosplenomegaly
Rectal: Deferred by Provider
Genito-urinary: Deferred by me
Musculoskeletal: No Clubbing, No Cyanosis, No Edema and Other (Patient reports pain right groin rating down right leg)
Skin: Warm and Dry; No Rash
Neuro: AO x 3, Nonfocal/grossly intact, Cranial Nerves Intact and No Sensory Deficits; No Slurred Speech, Facial Droop, Tremors or Sedated
Psych: Calm
Laboratory Results
-
02/15/25 19:22
02/15/25 19:21
Laboratory Results
Total Bilirubin 0.5 mg/dl (0.2-1.3) 02/15/25 19:21
AST 25 U/L (14-36) 02/15/25 19:21
ALT 16 U/L (0-35) 02/15/25 19:21
Alkaline Phosphatase 49 U/L (38-126) 02/15/25 19:21
Data Reviewed
-
CT Scan: Report Reviewed by me
Lab Data: Labs Reviewed by me
Impression/Plan
-
Impression/plan:
Admit to MedSurg
#Mechanical fall with right superior pubic rami fracture
#Chronic ambulatory dysfunction using wheelchair x 5 years due to chronic back pain
- Consult Ortho Dr. Frausto aware
- Pain control IV Dilaudid, Zofran as needed, bowel regimen
-Continue patient's Vicodin 5 mg twice daily
- PT/OT/case management consult
CT pelvis: Findings suggesting a nondisplaced fracture of the lateral right superior pubic ramus bone. Clinical correlation recommended.
#Anemia�normocytic
Hgb 11.3 baseline appears around 12
# Paroxysmal A-fib
-Continue Xarelto 20 mg with dinner
Continue amiodarone 100 mg daily
# HTN
Continue lisinopril 40 mg daily
#HLD
Continue Crestor 5 mg at bedtime
#DM2
-Continue glipizide twice daily patient states was just increased to twice daily
-Accu-Cheks with SSI, check HgbA1c
# Hypothyroidism
Continue levothyroxine 125 mcg p.o. daily
#Chronic back and neck pain
Patient takes Vicodin 2.5 mg twice daily but is prescribed 5 mg twice daily
#GERD
Continue omeprazole 20 mg daily, Pepcid 20 mg every afternoon
#Depression
Continue Effexor 37.5 mg daily
#Class II obesity�BMI 36.3
Affects all aspects of care
Weight loss recommended
Other PMH:
IBS
diverticulitis
osteoarthritis-continue vitamin D3
DVT prophylaxis
Continue Xarelto
Full code
[2025-02-15 23:00] VITALS: BP 147/64
[2025-02-15] MEDS: PEPCID 20 MG PO (23:46)
[2025-02-15] MEDS: XARELTO 20 MG PO (23:46)
[2025-02-16] VITALS (8 sets, daily range): BP systolic 117–145; BP diastolic 49–70; PULSE 61; O2SAT 94; BMI 36.3; BMI 37.0
[2025-02-16] MEDS: NORCO 5/325 1 TABLET PO ×3 (02:25→18:48)
--- NOTE | 2025-02-16 03:01 | TRANSFER ---
Received pt from ED at 0130 dx [facility] fall right pubic rami fx. Pt c/o /10 pain to right leg/hip. VS WNL. Plan of care discussed with pt. Call gibbs within reach, bed in lowest position. Assessments as documented.
[2025-02-16] MEDS: DILAUDID 1 MG IV (06:03)
[2025-02-16] MEDS: SYNTHROID 125 MCG PO (06:05)
--- NOTE | 2025-02-16 06:28 | CON.ORTHO ---
Consultation
-
Date/Time Consultation Requested: Feb 24
Date/Time Consultation Performed: Feb 24
Requesting Provider: ROSARIO Scott
Performing Provider: Rasheeda for [facility]
Reason for Consultation: Right Hemipelvis fracture
Consultation - Orthopedics
History
History of Present Illness:
Patient is an 84 y/o female, chronically wheelchair bound, except for transfers, with PMH of A-fib on Xarelto, HTN, Hypercholesterolemia, NIDDM, Hypothyroidism, diverticulitis, and IBS, who presents to the emergency department after a fall at home.
States she was trying to transfer from a chair onto her wheelchair but forgot to lock the brakes on the wheelchair. Wheelchair slid out and she fell onto the floor. She denies hitting her head. No prodrome. There was no loss of consciousness.
She complains of pain to her right hip. She is unable to move right lower extremity without severe pain and unable to bear weight. She is brought to the emergency department by EMS. Xrays/CT are suspicious for a right hemipelvis fracture, therefore
we have been requested in consult.
Past Medical History:
A-fib, HTN, Hypercholesterolemia, NIDDM, Hypothyroidism, neck/back pain, diverticulitis, IBS
ED Past Surgical History:
Hardware placed in right sided pelvis (SI joint?), Cholecystectomy, Tonsilectomy, surgery for a colonic abscess he, carpal tunnel surgery bilaterally, cystocele repair, rectocele repair, umbilical hernia surgery, D&C, Achilles tendon surgery
Social History:
Personal:
Living: with family
Employment: Retired
Family History:
Non-contributory
ROS:
12 point negative except those mentioned in the HPI
Allergies / Home Medications
Allergy/AdvReac Type Severity Reaction Status Date / Time
celecoxib Allergy Pharmacy Verified 02/15/25 18:35
to Review
ciprofloxacin (From Cipro) Allergy A-FIB Verified 02/15/25 18:35
erythromycin base Allergy stomach Verified 02/15/25 18:35
upset
oxycodone Allergy Nausea / Verified 02/15/25 18:35
Vomiting
steroids Allergy rash, ZAVALA, Uncoded 02/15/25 18:35
afib
�Medication �Instructions �Recorded
cholecalciferol (vitamin D3) 50 2,000 unit PO DAILY Supplement 09/07/17
mcg (2,000 unit) capsule (Vitamin
D3)
famotidine 20 mg tablet 20 mg PO QPM Gastrointestinal issue 09/07/17
lisinopril 10 mg tablet 40 mg PO DAILY Blood pressure 09/07/17
omeprazole 20 mg tablet,delayed 20 mg PO DAILY Gastrointestinal 09/07/17
release issue
rosuvastatin 5 mg tablet 5 mg PO HS High cholesterol 09/07/17
Fiber 2 tab PO BID Gastrointestinal issue 04/13/20
calcium carbonate (Antacid 2 tab PO HS Supplement 04/13/20
(calcium carbonate))
coenzyme Q10 200 mg capsule (Co 200 mg PO DAILY Supplement 04/13/20
Q-10)
levothyroxine 150 mcg tablet 125 mcg PO DAILY Thyroid 04/13/20
magnesium oxide 400 mg PO BID Supplement 04/13/20
rivaroxaban 20 mg tablet (Xarelto) 20 mg PO QPM Blood clot 04/13/20
prevention/tx
glipizide 10 mg tablet 10 mg PO BID 07/22/22
omega-3 fatty acids 1 cap PO BID 07/22/22
venlafaxine 37.5 mg tablet 37.5 mg PO DAILY 07/22/22
Cinnamon 1,000 mg PO BID 02/15/25
Lasix 20 mg PO DAILY PRN wt gain3-5 lbs 02/15/25
Probiotic 1 cap PO DAILY 02/15/25
amiodarone 200 mg tablet 100 mg PO DAILY 02/15/25
hydrocodone 5 mg-acetaminophen 325 2.5 tab PO BID 02/15/25
mg tablet
turmeric 1,500 mg PO BID 02/15/25
Miralax DAILY 02/16/25
Vital Signs / Lab Results
Temp Pulse Resp BP Pulse Ox
97.5 F 61 19 142/62 97
02/16/25 02:05 02/16/25 02:05 02/16/25 02:05 02/16/25 02:05 02/16/25 02:05
Assessment / Plan
PE: Afeb. Bedrest. Generalized pain over the right sided pelvis. Pain over the right hip capsule. Skin intact. LLE. Gentle ROM of the right hip limited due to pain. +/- logroll RLE. + right sided pelvic compression. Right knee nontender. Calf soft,
nontender. DNVI RLE
Diagnostics:
Xrays/CT- Hardware placement, in what appears to be, the Right SI joint. Suspicion for right superior pubic rami fracture. Moderate to severe right hip OA (comparatively)
Impression: Right hemipelvis fracture
Plan: Discussed at length with the patient. She is essentially wheelchair bound, except for transfers. She understands this (assumed) fracture is treated non-operatively, and that the typical recommendations are WBAT on assistive device. She may
WBAT for her baseline transfers. PT/OT would be beneficial if medically safe. She may experience increased discomfort here from the swelling, due to her Xarelto. Ortho OK for continued Xarelto dosing, but per primary, may be held for 2-3 days to
help mitigate this. Will defer. She does have a moderate amount of right hip OA at baseline, which may or may not be contributing to some of her symptoms. Again, may work with PT/OT, WBAT for transfers, and follow-up outpatient with Orthopaedics in
4 weeks. Pain control. Orthopaedics will sign off for now, but is available throughout the remainder of her admission for any pertinent questions related to this injury
[2025-02-16 06:59] LABS: Hematocrit 35.3 % (37.0-47.0); Hemoglobin 11.0 g/dL (12.0-16.0); Mean Corp Hgb Conc. 31.2 g/dL (33.0-37.0); Mean Corpuscular Volume 95.7 fL (81.0-99.0); Nucleated Red Blood Cells % 0 %; Platelet Count 201 10^3/uL (130-400); Red Cell Dist. Width 15.2 % (11.5-14.5)
[2025-02-16 07:18] LABS: Glucose - Point of Care 180 mg/dl (70-99)
[2025-02-16 07:18] LABS: ALT (SGPT) 15 U/L (0-35); AST (SGOT) 22 U/L (14-36); Albumin 3.7 g/dl (3.5-5.0); Alkaline Phosphatase 44 U/L (38-126); Blood Urea Nitrogen 32 mg/dl (7-17); Calcium 9.2 mg/dl (8.4-10.2); Carbon Dioxide 32 mmol/L (22-30); Chloride 100 mmol/L (98-107); Estimated Creatinine Clearance 41 ml/min; Glucose 191 mg/dl (70-99); Potassium 5.2 mmol/L (3.5-5.1); Sodium 134 mmol/L (135-145); Total Protein 6.4 g/dl (6.3-8.2); eGFR 49.86
--- NOTE | 2025-02-16 07:29 | W.PN.HOSP.TC ---
Addendum entered and electronically signed by Ofe Quna MD 02/16/25 13:54:
I saw and evaluated the patient independently. I reviewed and discussed the resident�s note and agree with findings and plan as documented by Dr. Bueno.
GENERAL: well developed, well nourished, female in no apparent distress
HEENT: NC/AT
HEART: regular rate and rhythm, +S1, +S2
LUNGS : clear to auscultation bilaterally
ABDOM: soft, nontender, nondistended, + bowel sounds
EXT: no cyanosis, clubbing, or edema
NEUROLOGIC: grossly intact
Mechanical fall with traumatic Fracture of lateral right superior pubic ramus--fell out of wheelchair because brakes were not set--nonoperative management--apprec ortho--PT/OT rec SNF--CM aware--has bed at [facility]--WBAT with assistive
devic--Continue patient's Vicodin 5 mg--hold Xarelto for 2 more days and restart
Paroxysmal atrial fibrillation--continue amiodarone- continue Xarelto after holding for 2 more days
Essential HTN- lisinopril
HLD- rosuvastatin
DM2- Accu-Cheks with SSI, check HgbA1c (ordered)--cont glipizide
Hypothyroidism- levothyroxine
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
GERD- famotidine
Depression- venlafaxine
IBS/Diverticulitis --stable-- without flare
DVT proph--rivaroxaban when able to restart
Code status--FULL CODE
Original Note:
Today's Communication/Plan
-
- discharge today to SNF
Assessment / Plan
Assessment / Plan
In summary, 84 yo F crhonically wheelchair bound, PMH of atrial fibrillation on rivaroxaban, HTN, HLD, NIDDM, hypothyroidism, diveriticulitis, IBS presents to ED after a fall and found to have a fracture of lateral right superior pubic ramus bone
Fracture of lateral right superior pubic ramus
- Ortho consulted: no operative management, recommend WBAT on assistive device
- Pain control IV Dilaudid, Zofran as needed will need transitioning to PO upon dishcarge
-Continue patient's Vicodin 5 mg
- Ortho is okay to continue rivaroxaban, but defers to primary
- PT/OT consulted and recommended SNF placement
- chronically wheelchair bound
- Per discussion with CM, accepted for SNF on 02/16, after 16:00 pending negative covid test
- Plan is for discharge today
Chronic issues per below:
Paroxysmal atrial fibrillation
- continue amiodaroen
- continue rivaraoxban
HTN
- lisinopril
HLD
- rosuvastatin
DM2
- Accu-Cheks with SSI, check HgbA1c (ordered)
Hypothyroidism
- levothyroxine
Chronic back/neck pain
- vicodin
GERD
- famotidine
Depression
- venlafaxine
IBS
Diverticulitis
DVT ppx: rivaroxaban
Disposition: SNF
Anticipated Discharge: 24 - 48 hours
Subjective/Interval History
-
Date of Service: February 16, 2025
84 yo F crhonically wheelchair bound, PMH of atrial fibrillation on rivaroxaban, HTN, HLD, NIDDM, hypothyroidism, diveriticulitis, IBS presents to ED after a fall while transferring from transport chair in garage to wheel chair in home. (forgot to
lock brakes).
Denies headstrike, LOC. Reports pain of right groin/hip/pelvis. CT in the ED c/f nondisplaced fracture of lateral right superior pubic ramus bone.
This morning, no overnight events, endorses pain in pelvis. denies chest pain, dyspnea, headache. Able to move toes, but reports pain when moving thighs or rotating trunk.
Objective Data
-
Labs:
Laboratory Results
02/15/25 02/15/25 02/16/25
19:21 19:22 06:00
WBC 6.1 6.3
Hgb 11.3 L 11.0 L
Hct 34.2 L 35.3 L
Plt Count 219 201
Sodium 132 L 134 L
Potassium 5.0 5.2 H
Chloride 98 100
Carbon Dioxide 29 32 H
BUN 37 H 32 H
Creatinine 0.9 1.1 H
Glucose 139 H 191 H
Calcium 9.6 9.2
Total Bilirubin 0.5 0.3
AST 25 22
ALT 16 15
Alkaline Phosphatase 49 44
Vital Signs:
Vital Signs
Temp Pulse Resp BP Pulse Ox
97.5 F 61 19 142/62 97
02/16/25 02:05 02/16/25 02:05 02/16/25 02:05 02/16/25 02:05 02/16/25 02:[address] 02/15/2025
IMPRESSION: Findings suggesting a nondisplaced fracture of the lateral right superior pubic ramus bone. Clinical correlation recommended.
Hip xray 02/15/2025
FINDINGS and IMPRESSION:
Surgical screws are seen along the posterior right bony pelvis likely about the right sacroiliac joint.
There is likely diffuse osteopenia.
No findings are seen to confirm recent fracture, dislocation or focal cortical bony destructive process.
Osseous degenerative changes are noted.
Atherosclerotic vascular soft tissue calcifications are seen.
Review of Systems
-
History Source: Patient
Constitutional: Reports No Symptoms
EENT: Reports No Symptoms Reported
Respiratory: Reports No Symptoms
Cardiac: Reports No Symptoms
Abdomen/GI: Reports Abdominal Pain (lower abdominal pain near pelvis)
Genitourinary: Reports No Symptoms
Musculoskeletal: Reports Joint Pain (pain in pelvis)
Skin: Reports Rash (RLQ rash (prior staph infection per her))
Neuro: Reports Other (pain when moving thighs)
Endocrine: Reports No Symptoms
Hematologic / Lymphatic: Reports No Symptoms
Psych: Reports Other (calm)
Physical Exam
-
General: No Apparent Distress
HEENT: Normocephalic and Atraumatic
Respiratory: Clear to Auscultation
Cardiac: Other (no murmurs on my exam)
GI: Soft, Normal Bowel Sounds and Other (tenderness to palpation in pelvic region)
Musculoskeletal: Other (wears compression socks)
Skin: Warm
Neuro: AO x 3, Nonfocal/Grossly Intact and Other (able to move toes, but pain when moving thighs)
Psych: Calm
[2025-02-16] MEDS: PROTONIX 40 MG PO (08:22)
[2025-02-16] MEDS: ZESTRIL 40 MG PO (08:23)
[2025-02-16] MEDS: VISBIOME 1 CAP PO (08:23)
[2025-02-16] MEDS: MAGNESIUM OXIDE 400 MG PO (08:23)
[2025-02-16] MEDS: VITAMIN D3 (cholecalciferol) 50 MCG PO (08:24)
[2025-02-16] MEDS: PACERONE 100 MG PO (08:24)
[2025-02-16] MEDS: EFFEXOR 37.5 MG PO (08:24)
[2025-02-16] MEDS: NOVOLOG FLEXPEN-LOW RESISTANCE 1 UNITS SC (08:33)
[2025-02-16 09:29] LABS: Glycohemoglobin (HgbA1c) 6.7 % (4.0-5.9)
[2025-02-16 11:41] LABS: Glucose - Point of Care 130 mg/dl (70-99)
--- NOTE | 2025-02-16 11:46 | CM ---
Addendum entered by Brittany Shields 02/16/25 12:01:
Patient daughter is Doctor at [facility] and her son in law Thierry will need a call to review care for [phone], per patient requested call.
Addendum entered by Brittany Shields 02/16/25 12:00:
accepted at [facility] for transfer today. CM will need auth for transfer.
Original Note:
Patient seen at bedside on with physicians. PT recommending SNF placement and patient requested referral to [facility], and pending acceptance and will need auth. Patient also in need of caregivers, [facility] ([facility] unable to provide
respite care but CM will call to patient son to review options for son. CM will continue to follow for discharge planning need.
Plan; SNF placement
[2025-02-16] MEDS: NOVOLOG FLEXPEN-LOW RESISTANCE SC (11:48)
[2025-02-16 14:02] LABS: COVID-19 Antigen Negative (Negative)
--- NOTE | 2025-02-16 14:13 | CM ---
Patient seen at bedside on 2 with physicians. Patient seen by therapy and they recommend SNF. Patient requested [facility]. Patient accepted for Snf transfer today with auth to [facility]. CM called to start authorization. and auth is
[id number] 02/16-02/20 with next review date 02/20/25 call to [phone]. ambulance transfer is [id number] for acute care per [facility]. CM updated [facility]. Plan for transfer today. Please call report [phone]/fax [phone]. verbally
reviewed IMM and will call to update patient family. CM will continue to follow for discharge planning needs.
Plan; transfer to SNF today.
--- NOTE | 2025-02-16 16:11 | W.DCSUMMARY ---
Addendum entered and electronically signed by Ofe Quan MD 02/17/25 07:17:
Read, reviewed, and agree. See same day progress note for additional details. Time spent coordinating care, DC planning, review of DC plan of care with resident, transition of care, review of records in EMR, med rec, consults, notes, d/w
consultants, nursing, family, and CM = 33 minutes
Original Note:
Discharge Summary
Discharge Data
Date of Admission: 02/15/25
Date of Discharge: 02/16/25
-
Pending Results: No
Hospital Course
Discharging Physician : Dr. Ofe Quan, Dr. Kurt Bueno
Disposition : SNF
Primary care physician : Dr. Pedro Barahona
Principal Discharge diagnosis : Mechanical fall with traumatic fracture of lateral right superior pubic ramus
Chronic Discharge diagnosis : Paroxysmal atrial fibrillation, essential hypertension, hyperlipidemia, type 2 diabetes mellitus, hypothyroid, chronic neck/back pain with chronic narcotic dependency, gastroesophageal reflux disease, depression,
irritable bowel syndrome
Hospital Course :
84 yo F chronically wheelchair bound, except for transfers, with PMH paroxysmal atrial fibrillation on Xarelto, essential HTN, HLD, DM2, Hypothyroidism, diverticulitis, and IBS, who presents to the emergency department after a fall at home. States
she was trying to transfer from a chair onto her wheelchair but forgot to lock the brakes on the wheelchair. Wheelchair slid out and she fell onto the floor. She denies hitting her head. No prodrome. There was no loss of consciousness. She
complains of pain to her right hip. She is unable to move right lower extremity without severe pain and unable to bear weight. She is brought to the emergency department by EMS. CT pelvis showed nondisplaced fracutre of lateral right superior pubic
ramus bone. Hip x-ray disclosed likely diffuse osteopenia.
The following acute problems were addressed during this admission:
Mechanical fall with traumatic Fracture of lateral right superior pubic ramus
- Orthopedic surgery was consulted, per their documentation, there is no role for surgical intervention
- They recommended weight-bearing as tolerated with assistive device
- PT/OT recommended SNF placement (she is going to [facility])
- Patient may continue vicodin 5mg
- Xarelto will be held and resumed on 02/19/2025 (per orthopedic documentation, temporarily holding xarelto may help mitigate swelling/discomfort in pelvic region)
Paroxysmal atrial fibrillation
- continue amiodarone
- resume xarelto on 02/19/2025
Chronic issues per below:
essential HTN: lisinopril
HLD: rosuvastatin
DM2: glipizide
Hypothyroidism: levothyroxine
Chronic back/neck pain with chronic narcotic dependency: vicodin
GERD: famotidine
Depression: venlafaxine
IBS, Diverticulitis: stable
Important imaging findings :
Pelvis CT 02/15/2025
Findings suggesting a nondisplaced fracture of the lateral right superior pubic ramus bone. Clinical correlation recommended.
Hip X-ray 02/15/2025
Surgical screws are seen along the posterior right bony pelvis likely about the right sacroiliac joint.
There is likely diffuse osteopenia.
No findings are seen to confirm recent fracture, dislocation or focal cortical bony destructive process.
Osseous degenerative changes are noted.
Atherosclerotic vascular soft tissue calcifications are seen.
Procedure findings :
EKG 02/15/2025
Vent. Rate : 58 BPM Atrial Rate : 58 BPM
P-R Int : 194 ms QRS Dur : 94 ms
QT Int : 468 ms P-R-T Axes : 64 -3 43 degrees
QTcB Int : 459 ms
SINUS BRADYCARDIA
OTHERWISE NORMAL ECG
Discharge Plan
-
Patient Disposition: Custodial/SNF
Discharge Diagnosis/Procedures: Mechanical fall with traumatic fracture of lateral right superior pubic ramus, paroxysmal atrial fibrillation, essential hypertension, hyperlipidemia, type 2 diabetes mellitus, hypothyroid, chronic neck/back pain with
chronic narcotic dependency, gastroesophageal reflux disease, depression, irritable bowel syndrome
Condition: Fair
Diet: Diabetic, Carb Controlled
Activity: Other activity
Additional Activity: wheelchair-bound, weight-bearing as tolerated with assistive device
Driving Restrictions: No driving
Bathing Restrictions: None
Referrals:
Pedro Barahona MD [Family Provider, Internal Medicine] - in less than 1 week
Additional Discharge Medication Instructions: Please resume Xarelto on 02/19.
Please continue your other home medications as below.
Please follow-up with your primary care doctor within 1 week.
Prescriptions:
New
hydrocodone-acetaminophen 5-325 mg tablet
1 tab PO Q6H PRN (Reason: severe pain) Qty: 7 0RF
Continued
famotidine 20 MG tablet
20 mg PO QPM
lisinopril 10 MG tablet
40 mg PO DAILY
rosuvastatin 5 MG tablet
5 mg PO HS
omeprazole 20 MG tablet,delayed release (DR/EC)
20 mg PO DAILY
cholecalciferol (vitamin D3) [Vitamin D3] 2,000 UNIT capsule
2,000 unit PO DAILY
levothyroxine 150 MCG tablet
125 mcg PO DAILY
calcium carbonate [Antacid (calcium carbonate)] 1 TABLET tablet,chewable
2 tab PO HS
coenzyme Q10 [Co Q-10] 200 MG capsule
200 mg PO DAILY
magnesium oxide 400 MG tablet
400 mg PO BID
Fiber
2 tab PO BID
omega-3 fatty acids Capsule
1 cap PO BID
Lasix
20 mg PO DAILY PRN (Reason: wt gain3-5 lbs)
Miralax
DAILY
amiodarone 200 mg tablet
100 mg PO DAILY Qty: 0 0RF
glipizide 10 mg Tablet
10 mg PO BID Qty: 0 0RF
venlafaxine 37.5 mg Tablet
37.5 mg PO DAILY Qty: 0 0RF
Cinnamon
1,000 mg PO BID Qty: 0 0RF
Probiotic
1 cap PO DAILY Qty: 0 0RF
turmeric
1,500 mg PO BID Qty: 0 0RF
Held
Xarelto 20 MG tablet
20 mg PO QPM
Hold Instructions: Resume on 02/19/25. Resume xarelto on 02/19/2025
Patient Comments:
TAKES AT DINNER
Discontinued
hydrocodone-acetaminophen 5-325 mg tablet
2.5 tab PO BID
Discharge Orders:
Discharge Patient (As Directed); Ordered 02/16/25
Ordered By: Kurt Bueno
Discharge Date and Time
Print Language: POLISH
[2025-02-16 16:48] LABS: Glucose - Point of Care 211 mg/dl (70-99)
[2025-02-16] MEDS: NOVOLOG FLEXPEN-LOW RESISTANCE 2 UNITS SC (17:19)
[2025-02-16] MEDS: PEPCID 20 MG PO (17:19)
[2025-02-16] MEDS: XARELTO 20 MG PO (17:19)
== END 2025-02-16 18:45 | DRG 536 ==
LOC: 2 SOUTH 23:37
PROVIDERS: Clinical Nurse Specialist Family Health; Nurse Practitioner; ADMITTING PHYSICIAN Hospitalist; ATTENDING PHYSICIAN Internal Medicine; CONSULT PHYSICIAN Specialist; EMERGENCY PHYSICIAN Emergency Medicine; FAMILY PHYSICIAN Internal Medicine
DX: S32.591A Other specified fracture of right pubis, initial encounter for closed fracture (principal); F11.20 Opioid dependence, uncomplicated; K57.20 Diverticulitis of large intestine with perforation and abscess without bleeding; I48.20 Chronic atrial fibrillation, unspecified; I48.0 Paroxysmal atrial fibrillation; I10 Essential (primary) hypertension; E11.9 Type 2 diabetes mellitus without complications; E03.9 Hypothyroidism, unspecified; K21.9 Gastro-esophageal reflux disease without esophagitis; F32.A Depression, unspecified; M85.80 Other specified disorders of bone density and structure, unspecified site; D64.9 Anemia, unspecified; E66.812 Obesity, class 2; M16.11 Unilateral primary osteoarthritis, right hip; W01.0XXA Fall on same level from slipping, tripping and stumbling without subsequent striking against object, initial encounter; Z68.36 Body mass index [BMI] 36.0-36.9, adult; Z79.01 Long term (current) use of anticoagulants; Z79.899 Other long term (current) drug therapy; Z99.3 Dependence on wheelchair; Z11.52 Encounter for screening for COVID-19
CPT/HCPCS: 72192; 73502; 80053; 82962; 83036; 85025; 86850; 86900; 86901; 87811; 93005; 96374; 96375; 97163; 97167; 99285